=== PATIENT | female | born 1955 | race Hispanic/Latino ===

== ENCOUNTER → 2022-09-19 | Day surgery (SDC) | payer MEDICARE ==
[~2022-09-19] MED LIST: ATORVASTATIN CA20 MG PO; LACTATED RINGER'S 1,000 ML ONE; LIDOCAINE HCL 2% LOCAL INJ 5 ML SDV VIAL INJ ONE; LISINOPRIL5 MG PO; METFORMIN HCL500 MG PO; POVIDONE IODINE 0.05% 0.05 % ML PO ONE; PRESERVISION A1 EAC6 PO; PROPOFOL IV EMULSION 10 MG/ML 20 ML VIAL ONE
[2022-09-19 15:11] VITALS: TEMP 97.4
[2022-09-19 15:25] VITALS: BP 130/78; PULSE 70; RESP 16; O2SAT 98
== END | disposition home or self-care (01) ==
LOC: OR 10:56
PROVIDERS: ATTEND Internal Medicine Gastroenterology
DX: Z12.11 Encounter for screening for malignant neoplasm of colon (principal); D12.2 Benign neoplasm of ascending colon; D12.3 Benign neoplasm of transverse colon; D12.5 Benign neoplasm of sigmoid colon; K57.30 Diverticulosis of large intestine without perforation or abscess without bleeding; K64.8 Other hemorrhoids; E78.5 Hyperlipidemia, unspecified; I10 Essential (primary) hypertension; E11.9 Type 2 diabetes mellitus without complications; D64.9 Anemia, unspecified; Z79.84 Long term (current) use of oral hypoglycemic drugs; Z79.899 Other long term (current) drug therapy; Z68.32 Body mass index [BMI] 32.0-32.9, adult; Z80.0 Family history of malignant neoplasm of digestive organs
CPT/HCPCS: 36415; 45384; 82948; 88305; 93005; J2001; J2704; J7121; 45378